=== PATIENT | female | born 1980 | race Caucasian/White ===

== ENCOUNTER 2018-05-07 17:19 | Emergency (ER) | payer SELFPAY ==
[2018-05-07] MEDS ORDERED: LIDOCAINE HCL MPF 1% 5ML VIAL ONE (17:28)
[2018-05-07] MEDS ORDERED: CEFTRIAXONE SODIUM 1 GM ONE (17:29)
== END 2018-05-07 17:50 | disposition home or self-care (01) ==
LOC: EDH 17:19
DX: K08.89 Other specified disorders of teeth and supporting structures (principal); J45.909 Unspecified asthma, uncomplicated; R01.1 Cardiac murmur, unspecified; K76.0 Fatty (change of) liver, not elsewhere classified; Z88.6 Allergy status to analgesic agent; Z98.51 Tubal ligation status; Z98.890 Other specified postprocedural states; Z72.0 Tobacco use
CPT/HCPCS: 96372; 99283; J0696; J3490

== ENCOUNTER 2018-08-08 18:40 | Emergency (ER) | payer BC ==
[2018-08-08 19:57] LABS: BASOPHILS % (AUTO) 0.9 % (0.0-5.0); EOSINOPHILS % (AUTO) 2.4 % (0.0-8.0); HEMATOCRIT 43.9 % (36-48); LYMPHOCYTES % (AUTO) 31.8 % (21.0-51.0); MEAN CORPUSCULAR HEMOGLOBIN 31.1 pg (27.0-33.0); MEAN CORPUSCULAR HGB CONC 33.3 g/dL (32.0-36.0); MEAN CORPUSCULAR VOLUME 93.5 fL (79-99); MONOCYTES % (AUTO) 5.3 % (3.0-13.0); NEUTROPHILS % (AUTO) 59.6 % (40.0-77.0); NUCLEATED RED BLOOD CELLS 0.1 % (0.0-0.19); PLATELET COUNT (AUTO) 268 K/uL (130-400); WHITE BLOOD COUNT (AUTO) 8.8 K/uL (4.8-10.8)
[2018-08-08 20:02] LABS: CREATININE 0.7 mg/dL (0.5-1.5); POTASSIUM 3.9 mmol/L (3.5-5.1)
[2018-08-08 20:10] LABS: B-TYPE NATRIURETIC PEPTIDE < 5 pg/mL (0-100)
== END 2018-08-08 20:27 | disposition home or self-care (01) ==
LOC: EDH 18:40
DX: M79.89 Other specified soft tissue disorders (principal); J45.909 Unspecified asthma, uncomplicated; G43.909 Migraine, unspecified, not intractable, without status migrainosus; Z79.899 Other long term (current) drug therapy; Z88.6 Allergy status to analgesic agent; Z90.49 Acquired absence of other specified parts of digestive tract
CPT/HCPCS: 36415; 80048; 83880; 85025

== ENCOUNTER → 2025-07-04 | Outpatient (CLI) | payer OTHER, MEDICARE ==
[~2025-07-04] MED LIST: ALBU8.5H8 IH; ATOR20TA PO; CLOP-31 PO; FLUT1BLS13 IH; IOHEXOL-350 75 ML VIAL IV ONE; LORA10TA7 PO; NIFE-78 PO; PANT40TA54 PO; PRED10TA3 PO; vitamin d PO
--- NOTE | 2025-07-05 18:56 | HMCIMG ---
EXAM: CT Abdomen and Pelvis with and without IV Contrast CLINICAL HISTORY: Unspecified cirrhosis of liver TECHNIQUE: Axial computed tomography images of the abdomen and pelvis were obtained before and after intravenous contrast administration, including a 7-minute delayed series. Multiplanar reformatted images were reviewed. Dose Information: Total DLP ??? 3953 mGy???cm. CONTRAST: With and without intravenous contrast. COMPARISON: None provided. FINDINGS: LUNG BASES: Reticular infiltrates with atelectatic bands in the left inferior lingula. Subpleural ground-glass opacities and reticulation in the bilateral dependent posterobasal segments suggest mild post-inflammatory or fibrotic change (ATS/ERS HRCT pattern: indeterminate for UIP). LIVER: Enlarged liver with fatty infiltration. No focal hepatic lesions. GALLBLADDER AND BILE DUCTS: Surgically absent gallbladder. No biliary dilatation. PANCREAS: Normal in size and contour. No peripancreatic inflammation. SPLEEN: Normal in size and attenuation. ADRENAL GLANDS: Unremarkable. KIDNEYS, URETERS, AND BLADDER: Left lower-pole multilocular cortical cyst measuring 5.7 ??? 4.1 cm with thin septations, no mural enhancement???consistent with Bosniak II renal cyst (benign, no follow-up required). Right kidney unremarkable. No hydronephrosis or calculus. Bladder normal. STOMACH AND BOWEL: Normal wall thickness and distension. No obstruction or inflammatory change. APPENDIX: Normal, 0.3 cm in diameter. PERITONEUM: No free fluid or free air. LYMPH NODES: No abdominopelvic lymphadenopathy. REPRODUCTIVE: Surgically absent uterus. Left adnexal multilocular cystic lesion measuring 3.3 ??? 2.7 cm without solid enhancing component???correlates to O-RADS 3 (intermediate risk; recommend sonographic correlation for characterization). VASCULATURE: No abdominal aortic aneurysm. Mild calcific atherosclerosis of aorto-iliac branches. BONES: No acute or aggressive osseous lesion. IMPRESSION: No acute intra-abdominal or pelvic abnormality. Enlarged liver with fatty infiltration. No focal hepatic lesions. Left renal multilocular cortical cyst ??? Bosniak II (benign, no follow-up required). Left adnexal multilocular cystic lesion ??? O-RADS 3 (intermediate risk); recommend pelvic ultrasound for further assessment. Subpleural reticulation and atelectatic bands in lingula and dependent lung bases. A dedicated chest CT is recommended. /[place]
== END | disposition home or self-care (01) ==
LOC: RAH 09:15
PROVIDERS: ATTEND Internal Medicine Gastroenterology
DX: K76.0 Fatty (change of) liver, not elsewhere classified (principal); J98.11 Atelectasis; E27.8 Other specified disorders of adrenal gland; I70.0 Atherosclerosis of aorta; K74.60 Unspecified cirrhosis of liver; Z90.49 Acquired absence of other specified parts of digestive tract
CPT/HCPCS: 74178; Q9967